=== PATIENT | female | born 1965 | race Caucasian/White ===

== ENCOUNTER 2016-08-31 02:27 | Emergency (ER) | payer SELFPAY ==
[2016-08-31] MEDS ORDERED: METOPROLOL TARTRATE 50 MG TABLET PO ONE (02:43)
[2016-08-31] MEDS ORDERED: 0.9 % SODIUM CHLORIDE 500 ML IV ONE ×2 (02:44→04:25)
[2016-08-31] MEDS ORDERED: ONDANSETRON HCL/PF 4 MG/ 2ML VIAL IVP ONE (02:44)
--- NOTE | 2016-08-31 03:42 | ED Physician Documentation ---
General Adult - HISTORIAN Historian: patient, spouse - HPI Stated Complaint: fever,vomiting,diarrhea Chief Complaint: General Adult Onset: days ago (1) Timing: still present Severity: moderate Further Comments: yes (Pt is a 51 yo female with one day hx diarrhea, n/v. Pt presents with elevated BP. She stopped taking her BP meds some months ago for financial reasons.) - ROS CONST: other (malaise) EYES/ENT: none CVS/RESP: none GI/: abdominal pain, vomiting, diarrhea MS/SKIN/LYMPH: none NEURO/PSYCH: headache (mild) - PAST HX Past History: other (Depression, HTN) Surgeries/Procedures: , hysterectomy, other (ortho) Allergies/Adverse Reactions: Allergies Allergy/AdvReac Type Severity Reaction Status Date / Time morphine Allergy Verified 08/31/16 02:58 Penicillins Allergy Verified 08/31/16 02:58 Home Medications: Ambulatory Orders Medication Instructions Recorded NK [NK] 08/31/16 - SOCIAL HX Smoking History: non-smoker - FAMILY HX Family History: No - VITAL SIGNS Vital Signs: Vital Signs Temp Pulse Resp BP Pulse Ox 98.4 F 84 16 194/122 94 08/31/16 02:30 08/31/16 02:30 08/31/16 02:30 08/31/16 02:30 08/31/16 02:30 - REVIEWED ASSESSMENTS Nursing Assessment Reviewed: Yes Vitals Reviewed: Yes Progress - Progress Progress: NS 500 cc IVF Zofran 4 mg IV Toradol 15 mg IV Metoprolol 50 mg po HCTZ 25 mg po BP 194/122-->155/82 Rx Lisinopril/HCTZ (). 1 po qd (med is on $4 list). F/u pcp. - EKG/XRAY/CT XRAY: abdomen (Normal bowel gas pattern.) ED Results Lab/Radiology - Orders Orders: ED Orders Category Date Time Status Place Saline Lock/IV Now Care 08/31/16 02:44 Active ABDOMEN 1 VIEW [RAD] Stat Exams 08/31/16 Ordered CBC/PLATELET/DIFF Routine Lab 08/31/16 03:27 Received CMP Routine Lab 08/31/16 03:27 Received INFLUENZA A&B Stat Lab 08/31/16 03:00 Ordered Rapid Strep [GRP A STREP SCREEN] Stat Lab 08/31/16 Ordered UA [URINALYSIS] Routine Lab 08/31/16 Ordered 0.9 % Sodium Chloride [Normal Saline] 500 ml Med 08/31/16 02:44 Active IV NOW Metoprolol Tartrate [Lopressor] Med 08/31/16 02:43 Discontinued 50 mg PO NOW ONE Ondansetron HCl/Pf [Zofran 4 mg/2 ml] Med 08/31/16 02:44 Discontinued 4 mg IVP NOW ONE General Adult Physical Exam - PHYSICAL EXAM GENERAL APPEARANCE: moderate distress EENT: pharynx normal NECK: normal inspection, supple RESPIRATORY: no resp distress, chest non-tender, breath sounds normal CVS: reg rate & rhythm, heart sounds normal ABDOMEN: soft, no organomegaly, tenderness (mild - moderate diffuse abd tenderness), decreased BS BACK: normal inspection, no CVA tenderness SKIN: warm/dry, normal color EXTREMITIES: non-tender, normal range of motion, no evidence of injury NEURO: oriented X3, motor nml, sensation nml Discharge Clincal Impression: Diarrhea Qualifiers: Diarrhea type: unspecified type Qualified Code(s): R19.7 - Diarrhea, unspecified HTN (hypertension) Qualifiers: Hypertension type: essential hypertension Qualified Code(s): I10 - Essential ( primary) hypertension Home Medications: Ambulatory Orders NK [NK] 08/31/16 Condition: Stable Disposition: 01 HOME, SELF-CARE Decision to Admit: NO Decision Time: 04:35
[2016-08-31 03:45] LABS: eGFR (African) > 60; eGFR (Non-African) > 60
[2016-08-31] MEDS ORDERED: KETOROLAC TROMETHAMINE 30 MG/1ML VIAL IVP ONE (03:47)
[2016-08-31 03:54] LABS: BASOPHILS % 0.2 (0.0-1.5); EOSINOPHILS % 0.8 % (0.0-6.8); LYMPHOCYTES # 0.7 # k/uL (0.6-4.0); MONOCYTES # 0.2 # k/uL (0.0-0.9); MONOCYTES % 2.9 % (0.0-11.0); NEUTROPHILS # 7.8 # k/uL (1.4-7.7)
[2016-08-31] MEDS ORDERED: HYDROCHLOROTHIAZIDE 25 MG TABLET PO ONE (04:07)
[2016-08-31 04:54] VITALS: BP 155/82
[2016-08-31 05:23] LABS: APPEARANCE,URINE CLEAR (CLEAR); COLOR,URINE YELLOW (YELLOW); OCCULT BLOOD,URINE NEGATIVE (NEGATIVE)
--- NOTE | 2016-08-31 06:48 | Diagnostic Imaging Report ---
Report Submission Date: Aug 31, 2016 3:49:10 AM EVP OPERATIONS Patient ~ Study Name: AKOSUA URIARTE ~ Date: Aug 31, 2016 3:35:32 AM EVP OPERATIONS ~ Modality Type: CR Gender: F ~ Description: ABDOMEN : 69 ~ Institution: [facility] Physician: ROBIN WAN ~ ~ ~ ~ Abdomen AP view. History: Abdominal pain with nausea and vomiting. Findings: The bowel gas pattern is normal. No evidence of bowel obstruction. Calcified phleboliths are seen within the pelvis. Otherwise no abnormal intrabdominal calcification present. Impression: 1. Normal bowel gas pattern. ~ Electronically signed on Aug 31, 2016 3:49:10 AM EVP OPERATIONS by: Vu HAYES
[2016-08-31] MEDS ORDERED: HYDROCHLOROTHIAZIDE 25 MG TABLET PO SCH (07:00)
== END 2016-08-31 04:50 | disposition home or self-care (01) ==
LOC: ED 02:27
DX: R19.7 Diarrhea, unspecified (principal); I10 Essential (primary) hypertension; T46.4X6A Underdosing of angiotensin-converting-enzyme inhibitors, initial encounter; Z91.120 Patient's intentional underdosing of medication regimen due to financial hardship
CPT/HCPCS: 74000; 80053; 81002; 85025; 87070; 87400; 87880; J1885; J2405; J7060; 96361; 96374; 96376; 99283; 99284; S1016